=== PATIENT | female | born 1990 | race Caucasian/White ===

== ENCOUNTER 2018-08-18 22:56 | Inpatient (IN) ==
[2018-08-18] MEDS ORDERED: LACTATED RINGER'S 1,000 ML IV PRN (23:28)
[2018-08-18] MEDS ORDERED: OXYTOCIN 30 UNITS/500 ML BAG IV PRN (23:28)
[2018-08-18] MEDS ORDERED: LACTATED RINGER'S 1,000 ML IV SCH (23:30)
[2018-08-18 23:50] LABS: Hematocrit (blood only) 40.2 % (37-47); Hemoglobin 14.1 g/dL (12.0-16.0); Mean Corpuscular Volume 95.7 fL (80-100); Mean Platelet Volume 13.9 fL (7.4-10.4); Platelet Count 156 K/uL (130-400); RDW Coefficient of Variation 12.9 % (11.5-14.5); RDW Standard Deviation 44.2 fL (36.4-46.3); White Blood Count 13.92 K/uL (4.8-10.8)
--- NOTE | 2018-08-18 23:52 | History & Physical Report ---
Date of Service August 18, 2018 Assessment & Plan (1) with 39 completed weeks gestation: fetus category one (2) Active labor at term: expectant management, epidural upon demand, anticipate . History of Present Illness Chief Complaint: contractions Primary Care Provider: NO PCP Patient is a 28yowf wtih iup at 39 0/7 weeks who presents to labor and delivery complaining of contractions. no lof/vb. +fm. uncomplicated. Likely dermoid discovered at ultrasound 2.7cm. labs--A+/ab-/pap nl/ri/rprnr/hepb-/hiv-/gc/ct-/ gtt x2 nl/ gbs neg Allergies Allergy/AdvReac Type Severity Reaction Status Date / Time latex Allergy Mild HIVES Verified 06/25/12 08:08 Home Medications Home Medications Medication Instructions Recorded Confirmed Type PNV cmb#95-ferrous fumarate-FA 1 tab PO DAILY 08/18/18 08/18/18 History [] Patient History Medical History Asthma History of varicella [place] teeth extracted Surgical History History of ankle surgery History of tonsillectomy Social History Smoking Status: Never smoker Hx Alcohol Use: No Hx Substance Use: No OB History g1 [employer] History no abnl paps, no stds dermoid on ultrasound in this Review of Systems All systems reviewed & are unremarkable except as noted in HPI & below Physical Exam 2 Vital Signs (Past 24 Hours): Last Vital Signs Pulse 77 08/18/18 23:10 BP 144/87 H 08/18/18 23:10 Constitutional: WD/WN, vitals as above Gastrointestinal (Abdomen): soft, gravid, nt Genitourinary: cx--5cm/80/0 station per nursing toco--q2min efm--140s with mod variability, +accels, no decels
[2018-08-19 00:07] LABS: Mean Corpuscular Hgb Conc 35.1 g/dL (32-36)
[2018-08-19] MEDS ORDERED: ePHEDrine sulfate 50 MG/ML AMP ONE (00:08)
[2018-08-19] MEDS ORDERED: BUPIVACAINE 0.25% 30 ML VIAL ONE (00:08)
[2018-08-19] MEDS ORDERED: fentaNYL citrate 100 MCG/2 ML VIAL ONE (00:09)
[2018-08-19] MEDS ORDERED: fentaNYL 2MCG/ML ROPIV 1.25MG/ML 100 ML BAG EPI ONE (00:10)
[2018-08-19] MEDS ORDERED: LACTATED RINGER'S 1,000 ML IV PRN (00:48)
[2018-08-19] MEDS ORDERED: NALOXONE HCL 1 MG in SODIUM CHLORIDE 0.9% 1000ML 1,000 ML IV PRN (00:48)
[2018-08-19] MEDS ORDERED: PROMETHAZINE HCL 6.25 MG in SODIUM CHLORIDE 0.9% 50 ML IV PRN (00:48)
[2018-08-19] MEDS ORDERED: DiphenhydrAMINE HCL 50 MG/ML VIAL IV PRN (00:48)
[2018-08-19] MEDS ORDERED: NALBUPHINE HCL INJ 10 MG/ML AMP IV PRN (00:48)
[2018-08-19] MEDS ORDERED: NALOXONE HCL 0.4 MG/1 ML VIAL/CARP IV PRN (00:48)
[2018-08-19] MEDS ORDERED: ePHEDrine sulfate 50 MG/ML AMP IV PRN (00:48)
[2018-08-19] MEDS ORDERED: ONDANSETRON INJ 2 MG/ML 2 ML VIAL IV PRN (00:48)
[2018-08-19] MEDS ORDERED: fentaNYL 2MCG/ML ROPIV 1.25MG/ML 100 ML BAG EPI PRN (00:48)
--- NOTE | 2018-08-19 00:52 | Anesthesiology Consultation ---
Date of Service August 19, 2018 Mild Asthma @ 39.1 Assessment & Plan (1) Encounter for pre-operative examination: Chart Review Chart Review: Patient NOT seen in Pre Admission Testing and Acceptable Risk for Labor Epidural Consults Requested none ASA ASA2 Proposed Anesthesia Anesthesia Type: Labor Epidural Risk / Benefits Reviewed With: PT / POA / Parent / Guardian, Accepts Plan and Informed Consent Obtained NPO Date Last Intake of Fluids: 08/18/18 Time Last Intake of Fluids: 23:30 Date Last Intake of Solids: 08/18/18 Time Last Intake of Solids: 18:00 History Height/Weight Height: 5 ft 4 in Weight: 156 kg Allergies Allergy/AdvReac Type Severity Reaction Status Date / Time latex Allergy Mild HIVES Verified 06/25/12 08:08 Medications Home Medications Medication Instructions Recorded Confirmed Last Taken PNV cmb#95-ferrous fumarate-FA 1 tab PO DAILY 08/18/18 08/18/18 08/17/18 [] Active Medications Generic Name Dose Route Start Last Admin Trade Name Freq PRN Reason Stop Dose Admin Lactated Ringer's 1,000 mls @ 125 mls/hr 08/18/18 23:30 08/19/18 00:40 Lr IV 08/20/18 23:29 125 mls/hr .Q8H CAMRYN Administration Lactated Ringer's 1,000 mls @ 999 mls/hr 08/18/18 23:28 08/19/18 00:40 Lr IV 09/17/18 23:27 Infused .Q1H1M PRN Infusion (Pre-Anesthesia) Past Medical History Medical History Asthma History of varicella [place] teeth extracted Past Surgical History Surgical History History of ankle surgery History of tonsillectomy Social History Smoking Status: Never smoker Hx Alcohol Use: No Hx Substance Use: No substance use type: does not use Physical Exam Vital Signs Last Vital Signs Temp 36.3 C L 08/18/18 23:50 Pulse 73 08/19/18 00:48 Resp 20 08/18/18 23:50 BP 128/79 08/19/18 00:48 Pulse Ox 100 08/19/18 00:47 Constitutional Gravid Abdomen ENMT Mouth: no TMJ abnormality Thyromental Distance: > or= 3.5 Finger Breadths Mallampati Class: II Neck normal visual inspection Respiratory normal respiratory effort Cardiovascular Rate/Rhythm: regular rate and regular rhythm Neurologic moves all extremities Psychiatric Orientation: alert Testing Laboratory Results 08/18/18 23:39
--- NOTE | 2018-08-19 02:55 | Labor Progress Brief Note ---
Date of Service August 19, 2018 Subjective comfortable with epidural Assessment & Plan (1) with 39 completed weeks gestation: (2) Active labor at term: labor down for one hour and then begin pushing. fetus reassuring category two. Physical Exam 2 Vital Signs (Past 24 Hours): Last Vital Signs Temp 36.4 C L 08/19/18 01:16 Pulse 108 H 08/19/18 02:53 Resp 20 08/19/18 02:30 BP 96/63 L 08/19/18 02:53 Pulse Ox 97 08/19/18 02:52 Constitutional: WD/WN, vitals as above Genitourinary: cx--c/c/0-+1 arom forebag clear toco--q1-3min efm--150s wtih mod variability, small accels, occasional variable with contraction
[2018-08-19] MEDS ORDERED: IBUPROFEN 600 MG TAB PO ONE (05:12)
--- NOTE | 2018-08-19 06:40 | Delivery Summary ---
DATE OF OPERATION: 08/19/2018 PREOPERATIVE DIAGNOSES: 1. Intrauterine at 39 weeks. 2. Active labor. POSTOPERATIVE DIAGNOSES: 1. Intrauterine at 39 weeks. 2. Active labor. PROCEDURES: 1. Epidural anesthesia. 2. Normal spontaneous vaginal delivery. 3. Small vaginal laceration, left labial laceration. SURGEON: Malena Joseph MD ANESTHESIA: Epidural. ESTIMATED BLOOD LOSS: 300 mL. DESCRIPTION OF PROCEDURE: The patient presented to labor and delivery in active labor. She was 5 cm and quickly progressed to 7 cm. She underwent an epidural anesthetic and once comfortable rested for a bit. She was checked and found to be complete-complete and 0 to +1 station with a bulging bag. The bulging bag was ruptured for clear fluid. The patient was allowed to labor down for an hour and then pushed for approximately 45 minutes with good effort to deliver a viable male infant in SUDHEER presentation. The nose and mouth were bulb suctioned. There was no nuchal cord. The rest of the baby was then delivered without difficulty. Of note, the left arm and hand were up by the face. The was then suctioned and placed on the maternal abdomen for drying and attention. The cord was clamped and cut at 1 minute of life. Cord blood and segment were obtained. Placenta was delivered spontaneously intact with a 3-vessel cord. Cervix, sulci, rectum, and perineum were examined and found to be intact. A small left-sided vaginal laceration at approximately 5:00 o'clock and a left labial laceration were repaired in normal standard fashion with 3-0 Vicryl. Hemostasis obtained with dilute Pitocin and fundal massage. Apgars pending at the time of dictation. Of note, the patient had deep variables with pushing, but was pushing with excellent effort and moving the baby with every single push. I attest to the content of the Intraoperative Record and any orders documented therein. Any exception s are noted below.
[2018-08-19] MEDS ORDERED: OXYCODONE/ACETAMINOPHEN 5mg/325mg TAB PO PRN (07:04)
[2018-08-19] MEDS ORDERED: ACETAMINOPHEN 325 MG TAB PO PRN (07:04)
[2018-08-19] MEDS ORDERED: DIPHTHERIA/TETANUS/PERTUSSIS 0.5 ML SYR/VIAL IM ONE (07:04)
[2018-08-19] MEDS ORDERED: SUPERCREAM 0.870% 15 GM JAR EXT PRN (07:04)
[2018-08-19] MEDS ORDERED: BENZOCAINE 20% AER SPR 82.5 GM CAN EXT PRN (07:04)
[2018-08-19] MEDS ORDERED: OXYTOCIN 30 UNITS/500 ML BAG IV PRN (07:04)
[2018-08-19] MEDS ORDERED: HYDROCORTISONE ACETATE 25 MG SUPP PR PRN (07:04)
--- NOTE | 2018-08-19 07:17 | Anesthesia Procedure Note ---
Date of Service August 19, 2018 Anesthesia Post Epidural Note Vital Signs Vital Signs: Temp Pulse Resp BP Pulse Ox 08/19/18 07:05 36.9 C 90 18 110/67 08/19/18 07:03 90 110/67 08/19/18 06:34 93 H 111/63 08/19/18 06:30 18 08/19/18 06:14 97 H 107/70 08/19/18 06:00 20 08/19/18 05:59 99 H 113/72 08/19/18 05:45 18 08/19/18 05:44 83 107/70 08/19/18 05:30 18 08/19/18 05:29 95 H 113/72 08/19/18 05:15 36.7 C 20 08/19/18 05:14 98 H 109/71 08/19/18 05:00 20 08/19/18 04:58 100 H 108/69 08/19/18 04:57 93 H 97 08/19/18 04:52 96 H 109/65 96 08/19/18 04:47 106 H 97 08/19/18 04:42 133 H 98 08/19/18 04:39 20 08/19/18 04:37 128 H 98 08/19/18 04:32 112 H 98 08/19/18 04:31 20 08/19/18 04:27 118 H 99 08/19/18 04:24 116 H 113/70 08/19/18 04:22 99 H 98 08/19/18 04:21 20 08/19/18 04:17 97 H 98 08/19/18 04:12 107 H 99 08/19/18 04:07 99 H 119/77 100 08/19/18 04:02 98 H 99 08/19/18 04:00 20 08/19/18 03:57 85 99 08/19/18 03:52 89 108/73 99 08/19/18 03:47 78 98 08/19/18 03:42 81 99 08/19/18 03:37 83 100/62 99 08/19/18 03:32 85 99 08/19/18 03:27 113 H 96 08/19/18 03:23 95 H 101/61 08/19/18 03:22 95 H 96 08/19/18 03:17 96 H 96 08/19/18 03:12 101 H 96 08/19/18 03:07 110 H 100/70 96 08/19/18 03:05 125 H 94 08/19/18 03:02 108 H 96 08/19/18 03:00 36.5 C 101 H 20 93 08/19/18 02:57 95 H 96 08/19/18 02:53 108 H 96/63 L 08/19/18 02:52 95 H 97 08/19/18 02:47 102 H 97 08/19/18 02:42 123 H 97 08/19/18 02:37 104 H 103/63 96 08/19/18 02:32 100 H 97 08/19/18 02:30 20 08/19/18 02:27 109 H 97 08/19/18 02:22 116 H 103/69 97 08/19/18 02:17 125 H 96 08/19/18 02:12 110 H 96 08/19/18 02:08 111 H 106/69 08/19/18 02:07 134 H 97 08/19/18 02:02 117 H 98 08/19/18 02:00 20 08/19/18 01:57 121 H 98 08/19/18 01:52 126 H 99/58 L 97 08/19/18 01:47 83 97 08/19/18 01:42 77 98 08/19/18 01:40 20 08/19/18 01:37 104 H 91/57 L 98 08/19/18 01:34 112 H 89/57 L 08/19/18 01:32 78 98 08/19/18 01:30 18 08/19/18 01:29 79 102/57 L 08/19/18 01:27 77 98 08/19/18 01:25 96 H 97/57 L 08/19/18 01:22 80 98 08/19/18 01:19 100 H 98/63 L 08/19/18 01:17 104 H 99 08/19/18 01:16 36.4 C L 08/19/18 01:15 18 08/19/18 01:14 103 H 93/59 L 08/19/18 01:12 101 H 99 08/19/18 01:10 104 H 99/61 L 08/19/18 01:07 83 100 08/19/18 01:05 99 H 97/56 L 08/19/18 01:02 76 98 08/19/18 01:00 18 08/19/18 00:59 89 98/61 L 08/19/18 00:57 80 99 08/19/18 00:52 93 H 99 08/19/18 00:50 20 08/19/18 00:48 73 128/79 08/19/18 00:47 82 100 08/19/18 00:46 44 L 126/80 08/19/18 00:44 85 126/84 08/19/18 00:43 80 123/85 08/19/18 00:42 79 99 08/19/18 00:40 77 20 137/78 08/19/18 00:38 81 136/76 08/19/18 00:37 70 99 08/19/18 00:32 71 100 08/19/18 00:27 68 100 08/18/18 23:50 36.3 C L 68 20 143/87 H 08/18/18 23:44 68 143/87 H 08/18/18 23:10 36.3 C L 77 22 144/87 H Pain Intensity Bilateral Abdomen: Pain Intensity: 4 Head: Pain Intensity: 2 Notes Mental Status: alert / awake / arousable Patient Amnestic to Procedure: No Nausea / Vomiting: adequately controlled Pain: adequately controlled Airway Patency, RR, SpO2: stable & adequate BP & HR: stable & adequate Hydration State: stable & adequate Anesthetic Complications: no major complications apparent Epidural: Removed without complications and With tip intact Notes: Epidural site looks clean, dry, intact without signs of edema or erythema. Pt doing well.
[2018-08-19] MEDS: PRENATAL VITAMIN 1 TAB PO SCH (09:16)
[2018-08-19] MEDS: DOCUSATE SODIUM 100 MG CAP PO SCH ×2 (09:16→20:23)
[2018-08-19] MEDS: IBUPROFEN 600 MG TAB PO PRN ×2 (11:25→17:02)
[2018-08-20] MEDS: IBUPROFEN 600 MG TAB PO PRN ×4 (00:17→22:17)
--- NOTE | 2018-08-20 06:49 | Obstetrical Progress Note ---
Date of Service August 20, 2018 Assessment & Plan (1) Status post vaginal delivery: Patient is a 28 year old PPD 1 s/p -Vital signs WNL bp 107/70 T37.0, -no si/sx of anemia. -Pt is doing clinically well -Continue to encourage ambulation as tolerated, Monitor and control pain with motrin prn, Continue diet as tolerated. -Continue to support and encourage breast feeding -Routine care Subjective PT doing well sitting upright in bed trying to wake baby to feed. Pt had no acute events overnight. She is ambulating, tolerating her diet, voiding, passing gas, but still no bm. answered all questions no acute concersns at this time Physical Exam Vital Signs (Past 24 Hours): Last Vital Signs Temp 37.0 C 08/20/18 00:10 Pulse 72 08/20/18 00:10 Resp 18 08/20/18 00:10 BP 107/70 08/20/18 00:10 Pulse Ox 96 08/20/18 00:10 Constitutional: WD/WN, vitals as above Eyes: normal visual jefferson by confrontation Respiratory: normal respiratory effort, lungs clear to auscultation Cardiovascular: RRR, no murmur, no edema Extremities: no calf tenderness Gastrointestinal (Abdomen): normal bowel sounds, soft, nontender, no hepatosplenomegaly Uterus firm and below the umbilicus Skin: no rashes, warm and dry Results & Data Medications Administered Current Inpatient Medications Acetaminophen (Tylenol) 650 mg PO Q6H PRN PRN Reason: Pain/STANTON/Fever Stop: 09/18/18 07:03 Benzocaine (Dermoplast Pain Relieving [place]) 1 appln EXT PRN PRN PRN Reason: Perineal Discomfort Stop: 09/18/18 07:03 Last Admin: 08/19/18 14:00 Dose: 82.5 appln Documented by: Bisacodyl (Dulcolax) 5 mg PO 1999 CAMRYN Stop: 08/20/18 20:01 Bisacodyl (Dulcolax) 10 mg [place] DAILY PRN PRN Reason: No BM on 2nd post- day Stop: 09/20/18 08:59 Cocaine HCl (Supercream 0.870%) 1 gm EXT BID PRN PRN Reason: Hemorrhoidal Inflammation Stop: 09/02/18 07:03 Docusate Sodium (Colace) 100 mg PO BID [facility] Stop: 09/18/18 08:59 Last Admin: 08/19/18 20:23 Dose: 100 mg Documented by: Hydrocortisone (Anusol Hc) 25 mg [place] BID PRN PRN Reason: Hemorrhoidal Inflammation Stop: 09/18/18 07:03 Oxytocin (Pitocin) 30 units in 500 mls @ 333.333 mls/hr IV .Q1H30M PRN; Protocol PRN Reason: BLEEDING CONTROL Stop: 09/18/18 07:03 Ibuprofen (Motrin) 600 mg PO Q4H PRN PRN Reason: Pain/STANTON/Cramping/Fever Stop: 09/18/18 07:03 Last Admin: 08/20/18 00:17 Dose: 600 mg Documented by: Oxycodone/Acetaminophen (Percocet 5mg/325mg) 1 tab PO Q4H PRN PRN Reason: Pain not relieved by... Stop: 09/02/18 07:03 Prenat Multivit/[place]/Iron/Folic Ac ( Vitamin) 1 tab PO QAM [facility] Stop: 09/18/18 08:59 Last Admin: 08/19/18 09:16 Dose: 1 tab Documented by: Resident Activity Tracking Resident Involvement: Resident Care Provided Care Provided: Adult Hospital Medicine
[2018-08-20] MEDS: DOCUSATE SODIUM 100 MG CAP PO SCH ×2 (08:31→19:53)
[2018-08-20] MEDS: PRENATAL VITAMIN 1 TAB PO SCH (08:33)
--- NOTE | 2018-08-20 10:11 | Obstetrical Progress Note ---
Date of Service August 20, 2018 Assessment & Plan (1) Status post vaginal delivery: Patient is a 28 year old PPD 1 s/p -Vital signs WNL bp 107/70 T37.0, -no si/sx of anemia. -Pt is doing clinically well -Continue to encourage ambulation as tolerated, Monitor and control pain with motrin prn, Continue diet as tolerated. -Continue to support and encourage breast feeding -Routine care -Counseled patient on discharge instructions including Vaginal bleeding, fevers, followup, lifting restrictions, breast feeding, vitamins, and nothing in the vagina for 6 weeks. Pt was agreeable -Plan for d/c today Supervising Physician Co-Signing Physician Notes Resident Physician Supervision Note: I was present with Dr. Milan during the history and exam. I discussed the case with the resident and agree with the findings and plan as documented in the note. Any exceptions or clarifications are listed here: The patient desires d/c, but is only PPD #1. Nursing has concers about nursing. Will re-evaluate in the PM. Documented By: Chase Suarez Jr, MD, FACOG Subjective PT doing well sitting upright in bed trying to wake baby to feed. Pt had no acute events overnight. She is ambulating, tolerating her diet, voiding, passing gas, but still no bm. answered all questions no acute concersns at this time Physical Exam Vital Signs (Past 24 Hours): Last Vital Signs Temp 37.0 C 08/20/18 00:10 Pulse 72 08/20/18 00:10 Resp 18 08/20/18 00:10 BP 107/70 08/20/18 00:10 Pulse Ox 96 08/20/18 00:10 Constitutional: WD/WN, vitals as above Eyes: normal visual jefferson by confrontation Respiratory: normal respiratory effort, lungs clear to auscultation Cardiovascular: RRR, no murmur, no edema Extremities: no calf tenderness Gastrointestinal (Abdomen): normal bowel sounds, soft, nontender, no hepatosplenomegaly uterus firm below umbilicus Skin: no rashes, warm and dry Resident Activity Tracking Resident Involvement: Resident Care Provided Care Provided: Adult [facility]
--- NOTE | 2018-08-20 10:41 | Obstetrical Progress Note ---
Date of Service August 20, 2018 Assessment & Plan (1) Status post vaginal delivery: Patient is a 28 year old PPD 1 s/p -Vital signs WNL bp 107/70 T37.0, -no si/sx of anemia. -Pt is doing clinically well -Continue to encourage ambulation as tolerated, Monitor and control pain with motrin prn, Continue diet as tolerated. -Continue to support and encourage breast feeding -Routine care -Counseled patient on discharge instructions including Vaginal bleeding, fevers, followup, lifting restrictions, breast feeding, vitamins, and nothing in the vagina for 6 weeks. Pt was agreeable Subjective PT doing well sitting upright in bed trying to wake baby to feed. Pt had no acute events overnight. She is ambulating, tolerating her diet, voiding, passing gas, but still no bm. answered all questions no acute concersns at this time Physical Exam Vital Signs (Past 24 Hours): Last Vital Signs Temp 37.0 C 08/20/18 00:10 Pulse 72 08/20/18 00:10 Resp 18 08/20/18 00:10 BP 107/70 08/20/18 00:10 Pulse Ox 96 08/20/18 00:10 Physical Exam: Constitutional: WD/WN, vitals as above Eyes: normal visual jefferson by confrontation Respiratory: normal respiratory effort, lungs clear to auscultation Cardiovascular: RRR, no murmur, no edema Extremities: no calf tenderness Gastrointestinal (Abdomen): normal bowel sounds, soft, nontender, no hepatosplenomegaly Uterus firm and below the umbilicus Skin: no rashes, warm and dry Results & Data Medications Administered Current Inpatient Medications Acetaminophen (Tylenol) 650 mg PO Q6H PRN PRN Reason: Pain/STANTON/Fever Stop: 09/18/18 07:03 Benzocaine (Dermoplast Pain Relieving [place]) 1 appln EXT PRN PRN PRN Reason: Perineal Discomfort Stop: 09/18/18 07:03 Last Admin: 08/19/18 14:00 Dose: 82.5 appln Documented by: Bisacodyl (Dulcolax) 5 mg PO 2000 CAMRYN Stop: 08/20/18 20:01 Bisacodyl (Dulcolax) 10 mg [place] DAILY PRN PRN Reason: No BM on 2nd post- day Stop: 09/20/18 08:59 Cocaine HCl (Supercream 0.870%) 1 gm EXT BID PRN PRN Reason: Hemorrhoidal Inflammation Stop: 09/02/18 07:03 Docusate Sodium (Colace) 100 mg PO BID [facility] Stop: 09/18/18 08:59 Last Admin: 08/20/18 08:31 Dose: 100 mg Documented by: Hydrocortisone (Anusol Hc) 25 mg [place] BID PRN PRN Reason: Hemorrhoidal Inflammation Stop: 09/18/18 07:03 Oxytocin (Pitocin) 30 units in 500 mls @ 333.333 mls/hr IV .Q1H30M PRN; Protocol PRN Reason: BLEEDING CONTROL Stop: 09/18/18 07:03 Ibuprofen (Motrin) 600 mg PO Q4H PRN PRN Reason: Pain/STANTON/Cramping/Fever Stop: 09/18/18 07:03 Last Admin: 08/20/18 08:32 Dose: 600 mg Documented by: Oxycodone/Acetaminophen (Percocet 5mg/325mg) 1 tab PO Q4H PRN PRN Reason: Pain not relieved by... Stop: 09/02/18 07:03 Prenat Multivit/[place]/Iron/Folic Ac ( Vitamin) 1 tab PO QAM [facility] Stop: 09/18/18 08:59 Last Admin: 08/20/18 08:33 Dose: 1 tab Documented by: Resident Activity Tracking Resident Involvement: Resident Care Provided Care Provided: Adult Hospital Medicine
[2018-08-20] MEDS ORDERED: BISACODYL 5 MG TABEC PO SCH (20:00)
[2018-08-21 06:45] LABS: Hematocrit (blood only) 36.7 % (37-47); Hemoglobin 12.3 g/dL (12.0-16.0)
--- NOTE | 2018-08-21 06:52 | Obstetrical Progress Note ---
Date of Service August 21, 2018 Assessment & Plan (1) Status post vaginal delivery: Patient is a 28 year old PPD 1 s/p -Vital signs WNL bp 112/73 T37.1, -Hemoglobin is 14.1 down from 12.3 on admission. no si/sx of anemia. -Pt is doing clinically well -Continue to encourage ambulation as tolerated, Monitor and control pain with motrin prn, Continue diet as tolerated. -Continue to support and encourage breast feeding -Routine care -Counseled patient on discharge instructions including Vaginal bleeding, fevers, followup, lifting restrictions, breast feeding, vitamins, and nothing in the vagina for 6 weeks. Pt was agreeable -Plan for D/C today Subjective Pt doing well this morning sitting up in bed watching tv with dad and baby at the bedside. she did well over night with no acute events Patient is tolerating her diet, ambulating, passing gas and voiding, still no bm. Reports moderate lochia. Denies H/A, chest pain, palpitations and uti syx. No concerns at this time and pain is well controlled. Physical Exam Vital Signs (Past 24 Hours): Last Vital Signs Temp 37.1 C 08/21/18 00:30 Pulse 71 08/21/18 00:30 Resp 18 08/21/18 00:30 BP 112/73 08/21/18 00:30 Pulse Ox 97 08/21/18 00:30 Constitutional: WD/WN, vitals as above Eyes: normal visual jefferson by confrontation Respiratory: normal respiratory effort, lungs clear to auscultation Cardiovascular: RRR, no murmur, no edema Extremities: no calf tenderness Gastrointestinal (Abdomen): normal bowel sounds, soft, nontender, no hepatosplenomegaly uterus firm and below the umbilicus Skin: no rashes, warm and dry Results & Data Laboratory Results 08/21/18 Range/Units 05:43 Hgb 12.3 (12.0-16.0) g/dL Hct 36.7 L (37-47) % Medications Administered Current Inpatient Medications Acetaminophen (Tylenol) 650 mg PO Q6H PRN PRN Reason: Pain/STANTON/Fever Stop: 09/18/18 07:03 Benzocaine (Dermoplast Pain Relieving [place]) 1 appln EXT PRN PRN PRN Reason: Perineal Discomfort Stop: 09/18/18 07:03 Last Admin: 08/19/18 14:00 Dose: 82.5 appln Documented by: Bisacodyl (Dulcolax) 10 mg [place] DAILY PRN PRN Reason: No BM on 2nd post- day Stop: 09/20/18 08:59 Cocaine HCl (Supercream 0.870%) 1 gm EXT BID PRN PRN Reason: Hemorrhoidal Inflammation Stop: 09/02/18 07:03 Docusate Sodium (Colace) 100 mg PO BID [facility] Stop: 09/18/18 08:59 Last Admin: 08/20/18 19:53 Dose: 100 mg Documented by: Hydrocortisone (Anusol Hc) 25 mg [place] BID PRN PRN Reason: Hemorrhoidal Inflammation Stop: 09/18/18 07:03 Oxytocin (Pitocin) 30 units in 500 mls @ 333.333 mls/hr IV .Q1H30M PRN; Protocol PRN Reason: BLEEDING CONTROL Stop: 09/18/18 07:03 Ibuprofen (Motrin) 600 mg PO Q4H PRN PRN Reason: Pain/STANTON/Cramping/Fever Stop: 09/18/18 07:03 Last Admin: 08/20/18 22:17 Dose: 600 mg Documented by: Oxycodone/Acetaminophen (Percocet 5mg/325mg) 1 tab PO Q4H PRN PRN Reason: Pain not relieved by... Stop: 09/02/18 07:03 Prenat Multivit/[place]/Iron/Folic Ac ( Vitamin) [facility] Stop: 09/18/18 08:59 Last Admin: 08/20/18 08:33 Dose: 1 tab Documented by: Resident Activity Tracking Resident Involvement: Resident Care Provided Care Provided: Adult Hospital Medicine
[2018-08-21] MEDS: IBUPROFEN 600 MG TAB PO PRN (07:19)
[2018-08-21] MEDS ORDERED: BISACODYL 10 MG SUPP PR PRN (09:00)
[2018-08-21] MEDS: PRENATAL VITAMIN 1 TAB PO SCH (09:01)
[2018-08-21] MEDS: DOCUSATE SODIUM 100 MG CAP PO SCH (09:01)
== END 2018-08-21 12:25 | disposition home or self-care (01) | DRG 807 ==
LOC: OPB 22:56 → 4S1 22:57 → 4S2 08-19 08:26